=== PATIENT | female | born 1960 | race Caucasian/White ===

== ENCOUNTER → 2021-05-31 | Outpatient (CLI) | payer BC, OTHER ==
[~2021-05-31] MED LIST: ATENOLOL25 MG PO; CATAPRES 0.1MG0.1 MG PO; COZAAR50 MG PO; FARXIGA10 MG PO; FLONASE 50 MCG; LAMICTAL TAB 2525 MG PO; LASIX20 MG PO; LEVOTHYROXINE150 MC1 PO; LIPITOR40 MG PO; LOW DOSE ASPIRI81 MG PO; METFORMIN HCL1000 MG PO; NEURONTIN800 MG PO; NITROSTAT0.4 MG SL; NORVASC10 MG PO; ONDANSETRON ODT8 MG SL; OZEMPIC1 MG/0.71 SQ; PERCOCET 7.5-31 EACH PO; POTASSIUM CHLO10 MEQ PO; PROTONIX40 MG PO; REMERON30 MG PO; ROBAXIN 750 MG750 MG PO; SINGULAIR10 MG PO; VASCEPA1 GM PO; XARELTO20 MG PO; ZOLOFT100 MG PO
[2021-05-31 11:32] LABS: HEMOGLOBIN 13.4 gm/dl (12.3-15.3); RED BLOOD COUNT 4.81 M/UL (4.00-5.10); WHITE BLOOD COUNT 9.7 K/UL (4.5-11.0)
[2021-05-31 11:51] LABS: BUN/CREATININE RATIO 8 (0-10)
== END ==
LOC: EDSTATUS 10:00 → OPSV2 10:00
PROVIDERS: Orthopaedic Surgery
DX: Z01.818 Encounter for other preprocedural examination (principal); M17.12 Unilateral primary osteoarthritis, left knee
CPT/HCPCS: 36415; 71046; 80048; 85025; 93005

== ENCOUNTER → 2021-06-13 | Outpatient (CLI) | payer MEDICARE, OTHER ==
[2021-06-13 13:39] LABS: BUN/CREATININE RATIO 6 (0-10)
== END ==
LOC: LAB 12:43
PROVIDERS: Orthopaedic Surgery
DX: Z01.812 Encounter for preprocedural laboratory examination (principal)
CPT/HCPCS: 36415; 80048; 86850; 86900; 86901

== ENCOUNTER 2021-06-14 07:38 | Day surgery (SDC) | payer BC, OTHER ==
[~2021-06-14] VITALS: Ht 162.6 cm; Wt 98.0 kg
--- NOTE | 2021-06-15 14:50 | NUR ---
REPORT CALLED TO JOSELITO HARRIS RN AT [facility]
== END 2021-06-15 15:45 | disposition home or self-care (01) ==
LOC: M/S 07:38 → OR 07:38 → EDSTATUS 11:00 → M/S 12:15 → OR 06-15 15:45
DX: M17.12 Unilateral primary osteoarthritis, left knee (principal); S83.519A Sprain of anterior cruciate ligament of unspecified knee, initial encounter; I25.10 Atherosclerotic heart disease of native coronary artery without angina pectoris; I10 Essential (primary) hypertension; E78.5 Hyperlipidemia, unspecified; E03.9 Hypothyroidism, unspecified; K21.9 Gastro-esophageal reflux disease without esophagitis; E78.00 Pure hypercholesterolemia, unspecified; E11.9 Type 2 diabetes mellitus without complications; G47.30 Sleep apnea, unspecified; F41.9 Anxiety disorder, unspecified; F32.A Depression, unspecified; X58.XXXA Exposure to other specified factors, initial encounter; Z79.01 Long term (current) use of anticoagulants; Z79.82 Long term (current) use of aspirin; Z79.84 Long term (current) use of oral hypoglycemic drugs; Z79.891 Long term (current) use of opiate analgesic; Z79.899 Other long term (current) drug therapy
CPT/HCPCS: 73560; 76000; 82962; 97116-GP-CQ; 97162; 97165; 97530; 97535; C1776; J0690; J1100; J1170; J1885; J2001; J2250; J2704; J2795; J7120